=== PATIENT | female | born 1935 | race Caucasian/White ===

== ENCOUNTER → 2016-11-28 | Outpatient (CLI) | payer MEDICARE, OTHER ==
[~2016-11-28] MED LIST: ASPIRIN81 M1 PO; AUGMENTIN 875 M1 TA1 PO; CALCIUM 600 PLU1 TAB PO; CEFTIN250 MG PO; CIPRO500 MG PO; FISH OIL 10001000 MG PO; GARLIC1 TAB PO; LEVAQUIN 500 M500 M1 IV; METOPROLOL25 MG PO; MULTIVITAMIN FO1 CAP PO; PROSOM2 MG PO; RESTORIL30 MG PO; RESTORIL7.5 MG PO; RITE AID MAGNE500 MG PO; ROCEPHIN1 GM IV; SLIPPERY ELM PO; SUPER B COMPLEX1 CAP PO; SYNTHROID,LEV125 MCG PO; VITAMIN C500 MG PO; [UNRECOGNIZED DRUG - OTHER]; [UNRECOGNIZED DRUG - OTHER]; [UNRECOGNIZED DRUG - OTHER] PO; [UNRECOGNIZED DRUG - OTHER] PO
--- NOTE | ~2016-11-28 | HM ---
[place], [place] HOLTER MONITOR REPORT NAME: [id number] UNIT #: [id number] ROOM: DOCTOR: CLAUDINE BAZAN MD BIRTHDATE: [birth year] DOS: 11/29/2016 REFERRED BY: Lulu Mays DO. The recording was begun on 11/28/2016, the recording was completed on 11/29/2016, analyzed on 11/29/2016 and interpreted on 11/29/2016. INDICATIONS: Paroxysmal atrial fibrillation. FINDINGS: The basic rhythm is normal sinus. Average heart rate is 83 and minimum heart rate is 56. The patient had occasional premature ventricular contractions with 1 couplet during the 24-hour period. The patient had frequent PACs. She did have several long runs of supraventricular tachycardia with rates up to 176 beats per minute. These appeared to be from a different focus from her sinus node and may represent AV joy or other reentrant tachycardias within the atrium. Episodes lasted as long as 2 hours with the longest episode beginning at about 3:15 in the afternoon. No prolonged pauses were noted. The patient did note heart flutters, heart pounding and fast heartbeats. The episode of heart pounding was associated with supraventricular tachycardia. The other symptoms were associated with normal sinus. IMPRESSION: Episodes of atrial tachycardia, possibly representing a reentrant tachycardia, lasting up to a few hours. The patient had symptoms of "pounding" during her tachycardias. CLAUDINE BAZAN MD CM:HOLTER:HOLTER MONITOR REPORT [id number] CLAUDINE BAZAN MD
== END | disposition home or self-care (01) ==
LOC: CARD 12:32
DX: I48.0 Paroxysmal atrial fibrillation (principal)

== ENCOUNTER 2017-02-27 10:43 | Emergency (ER) | payer MEDICARE, OTHER ==
[~2017-02-27] VITALS: Ht 160 cm; Wt 62.6 kg
[2017-02-27 11:25] LABS: BASO # 0.1 10*3/uL (0.0-0.1); BASO % 1.2 % (0.0-1.0); EOS # 0.4 10*3/uL (0.0-0.4); EOS % 5.9 % (1.0-4.0); HEMATOCRIT 38.8 % (37.0-47.0); HEMOGLOBIN 12.8 g/dl (12.0-16.0); LYMPH # 2.1 10*3/uL (1.3-4.4); LYMPH % 30.5 % (27.0-41.0); MEAN CELL VOLUME 89.4 fl (81.0-99.0); MEAN CORPUSCULAR HGB 29.5 pg (27.0-31.0); MEAN PLATELET VOLUME 9.9 fl (9.6-12.3); MONO # 0.6 10*3/uL (0.1-1.0); NEUT # 3.6 10*3/uL (2.3-7.9); NEUT % 53.1 % (47.0-73.0); PLATELET COUNT AUTOMATED 237 10*3/uL (130-400); RED BLOOD COUNT 4.34 10*6/uL (4.10-5.10); RED CELL DISTRI WIDTH 13.3 % (0-14.5); WHITE BLOOD COUNT 6.8 10*3/uL (4.8-10.8)
[2017-02-27 11:41] LABS: ALBUMIN 3.3 gm/dl (3.1-4.5); ALKALINE PHOSPHATASE 73 U/L (45-117); BUN 13 mg/dl (7-24); SGOT/AST 38 IU/L (3-35); SGPT/ALT 31 U/L (12-78); TOTAL PROTEIN 6.8 gm/dL (6.4-8.2)
[2017-02-27 11:48] LABS: CHLORIDE 105 mmol/L (98-107); MAGNESIUM 2.1 mg/dL (1.5-2.1); POTASSIUM 4.1 mmol/L (3.5-5.1); SODIUM 139 mmol/L (136-145)
[2017-02-27 11:55] LABS: CKMB 4.5 ng/ml (0.5-3.6)
[2017-02-27 12:01] LABS: THYROID STIM HORMONE (HS) 2.11 uIU/ml (0.358-4.75)
[2017-02-27 12:07] LABS: TROPONIN I < 0.015 ng/ml (<0.045)
== END 2017-02-27 14:02 | disposition short-term general hospital (02) ==
LOC: ED 10:43
PROVIDERS: Family Medicine
DX: S02.31XA Fracture of orbital floor, right side, initial encounter for closed fracture (principal); I10 Essential (primary) hypertension; E03.9 Hypothyroidism, unspecified; Z88.2 Allergy status to sulfonamides; Z79.899 Other long term (current) drug therapy; Z79.82 Long term (current) use of aspirin; W10.9XXA Fall (on) (from) unspecified stairs and steps, initial encounter; Y93.89 Activity, other specified; Y92.89 Other specified places as the place of occurrence of the external cause; Y99.8 Other external cause status

== ENCOUNTER → 2017-09-18 | Outpatient (CLI) | payer MEDICARE, OTHER ==
[2017-09-18 14:35] LABS: BASO # 0.1 10*3/uL (0.0-0.1); BASO % 0.9 % (0.0-1.0); EOS # 0.3 10*3/uL (0.0-0.4); EOS % 3.1 % (1.0-4.0); HEMATOCRIT 40.6 % (37.0-47.0); HEMOGLOBIN 13.7 g/dl (12.0-16.0); LYMPH # 2.4 10*3/uL (1.3-4.4); LYMPH % 29.5 % (27.0-41.0); MEAN CELL VOLUME 88.3 fl (81.0-99.0); MEAN CORPUSCULAR HGB 29.8 pg (27.0-31.0); MEAN CORPUSCULAR HGB CONC 33.7 g/dl (33.0-37.0); MEAN PLATELET VOLUME 10.3 fl (9.6-12.3); MONO # 0.7 10*3/uL (0.1-1.0); MONO % 8.9 % (3.0-9.0); NEUT # 4.7 10*3/uL (2.3-7.9); NEUT % 57.5 % (47.0-73.0); PLATELET COUNT AUTOMATED 233 10*3/uL (130-400); RED CELL DISTRI WIDTH 13.4 % (0-14.5); WHITE BLOOD COUNT 8.2 10*3/uL (4.8-10.8)
[2017-09-18 15:02] LABS: ALBUMIN 3.7 gm/dl (3.1-4.5); BUN 12 mg/dl (7-24); CHLORIDE 102 mmol/L (98-107); CHOLESTEROL 155 mg/dL (<200); CREATININE 1.03 mg/dL (0.55-1.02); POTASSIUM 4.2 mmol/L (3.5-5.1); SGOT/AST 37 IU/L (3-35); SGPT/ALT 31 U/L (12-78); SODIUM 135 mmol/L (136-145); TOTAL PROTEIN 7.4 gm/dL (6.4-8.2); TRIGLYCERIDES 93 mg/dl (<150); VLDL CHOLESTEROL 19 mg/dL (6-40)
[2017-09-18 15:11] LABS: ALKALINE PHOSPHATASE 78 U/L (45-117); HDL CHOLESTEROL 66 mg/dl (40-60); LDL CHOLESTEROL 70 mg/dL (9-159)
== END | disposition home or self-care (01) ==
LOC: LAB 13:14
PROVIDERS: Internal Medicine
DX: I10 Essential (primary) hypertension (principal); E03.9 Hypothyroidism, unspecified

== ENCOUNTER → 2018-01-26 | Outpatient (CLI) | payer MEDICARE, OTHER ==
[2018-01-26 11:19] LABS: HEMATOCRIT 44.2 % (37.0-47.0); HEMOGLOBIN 14.4 g/dl (12.0-16.0); MEAN CELL VOLUME 91.3 fl (81.0-99.0); MEAN CORPUSCULAR HGB 29.8 pg (27.0-31.0); MEAN CORPUSCULAR HGB CONC 32.6 g/dl (33.0-37.0); RED BLOOD COUNT 4.84 10*6/uL (4.10-5.10); RED CELL DISTRI WIDTH 13.2 % (0-14.5); WHITE BLOOD COUNT 8.8 10*3/uL (4.8-10.8)
[2018-01-26 11:52] LABS: ALBUMIN 3.9 gm/dl (3.1-4.5); CREATININE 1.24 mg/dL (0.55-1.02); POTASSIUM 4.1 mmol/L (3.5-5.1); TOTAL PROTEIN 7.7 gm/dL (6.4-8.2)
[2018-01-26 12:01] LABS: THYROID STIM HORMONE (HS) 2.56 uIU/ml (0.358-4.75)
== END ==
LOC: LAB 11:01
PROVIDERS: Physician Assistant
DX: E03.9 Hypothyroidism, unspecified (principal); I10 Essential (primary) hypertension; F51.04 Psychophysiologic insomnia; E55.9 Vitamin D deficiency, unspecified

== ENCOUNTER → 2019-02-09 | Outpatient (CLI) | payer MEDICARE, OTHER ==
[~2019-02-09] MED LIST changes: +ENOXAPARIN40 MG/0.2 SC; +HYDROCODONE-AC1 EAC1 PO; +LOPRESSOR50 M1 PO; +MORPHINE SU2 MG/1 M2 IV
== END | disposition home or self-care (01) ==
LOC: RAD 13:55
DX: M16.11 Unilateral primary osteoarthritis, right hip (principal); M47.817 Spondylosis without myelopathy or radiculopathy, lumbosacral region; M51.37 Other intervertebral disc degeneration, lumbosacral region; M48.061 Spinal stenosis, lumbar region without neurogenic claudication; M25.78 Osteophyte, vertebrae

== ENCOUNTER 2019-09-06 11:59 | Emergency (ER) | payer MEDICARE, OTHER ==
[~2019-09-06] VITALS: Ht 160 cm; Wt 59.0 kg
[2019-09-06 12:42] LABS: BASO # 0.1 10*3/uL (0.0-0.1); BASO % 1.1 % (0.0-1.0); EOS # 0.3 10*3/uL (0.0-0.4); EOS % 3.4 % (1.0-4.0); HEMATOCRIT 43.9 % (37.0-47.0); HEMOGLOBIN 14.1 g/dl (12.0-16.0); LYMPH % 24.3 % (27.0-41.0); MEAN CELL VOLUME 92.8 fl (81.0-99.0); MEAN CORPUSCULAR HGB 29.8 pg (27.0-31.0); MEAN CORPUSCULAR HGB CONC 32.1 g/dl (33.0-37.0); MEAN PLATELET VOLUME 10.3 fl (9.6-12.3); MONO # 0.7 10*3/uL (0.1-1.0); MONO % 8.9 % (3.0-9.0); NEUT # 5.1 10*3/uL (2.3-7.9); NEUT % 61.9 % (47.0-73.0); PLATELET COUNT AUTOMATED 267 10*3/uL (130-400); RED BLOOD COUNT 4.73 10*6/uL (4.10-5.10); WHITE BLOOD COUNT 8.2 10*3/uL (4.8-10.8)
[2019-09-06 12:59] LABS: ALBUMIN 3.5 gm/dl (3.1-4.5); ALKALINE PHOSPHATASE 84 U/L (45-117); BUN 16 mg/dl (7-24); CHLORIDE 104 mmol/L (98-107); CREATININE 1.04 mg/dL (0.55-1.02); POTASSIUM 4.2 mmol/L (3.5-5.1); SGOT/AST 23 IU/L (3-35); SGPT/ALT 22 U/L (12-78); SODIUM 139 mmol/L (136-145); TOTAL PROTEIN 7.3 gm/dL (6.4-8.2)
[2019-09-06 13:06] LABS: TROPONIN I < 0.015 ng/ml (<0.045)
== END 2019-09-06 13:30 | disposition home or self-care (01) ==
LOC: ED 11:59
PROVIDERS: Emergency Medicine
DX: J06.9 Acute upper respiratory infection, unspecified (principal); E03.9 Hypothyroidism, unspecified; I12.9 Hypertensive chronic kidney disease with stage 1 through stage 4 chronic kidney disease, or unspecified chronic kidney disease; N18.3 Chronic kidney disease, stage 3 (moderate); M19.90 Unspecified osteoarthritis, unspecified site; Z88.2 Allergy status to sulfonamides; Z79.899 Other long term (current) drug therapy

== ENCOUNTER → 2020-08-17 | Outpatient (CLI) | payer MEDICARE, OTHER | END | disposition home or self-care (01) | LOC: CARD 08-16 11:00 | PROVIDERS: ATTEND Physician Assistant | DX: I48.0 Paroxysmal atrial fibrillation (principal); I10 Essential (primary) hypertension; M54.5 Low back pain; I49.9 Cardiac arrhythmia, unspecified ==

== ENCOUNTER 2021-12-12 07:31 | Inpatient (IN) | payer MEDICARE, OTHER ==
[~2021-12-12] VITALS: Ht 157.5 cm; Wt 64.9 kg
[2021-12-12 07:38] VITALS: BP 128/73
[2021-12-12] MEDS ORDERED: WARFARIN SODIUM4 MG PO (07:49)
[2021-12-12 08:25] LABS: BASO % 0.3 % (0.0-1.0); EOS # 0.1 10*3/uL (0.0-0.4); EOS % 0.5 % (1.0-4.0); HEMATOCRIT 44.2 % (37.0-47.0); LYMPH % 7.1 % (27.0-41.0); MEAN CELL VOLUME 87.2 fl (81.0-99.0); MEAN CORPUSCULAR HGB 29.4 pg (27.0-31.0); MEAN CORPUSCULAR HGB CONC 33.7 g/dl (33.0-37.0); MEAN PLATELET VOLUME 9.6 fl (9.6-12.3); MONO # 1.2 10*3/uL (0.1-1.0); MONO % 8.2 % (3.0-9.0); NEUT # 12.3 10*3/uL (2.3-7.9); NEUT % 83.6 % (47.0-73.0); PLATELET COUNT AUTOMATED 244 10*3/uL (130-400); RED BLOOD COUNT 5.07 10*6/uL (4.10-5.10); RED CELL DISTRI WIDTH 12.6 % (0-14.5); WHITE BLOOD COUNT 14.7 10*3/uL (4.8-10.8)
[2021-12-12 08:41] LABS: ALKALINE PHOSPHATASE 74 U/L (45-117); BUN 11 mg/dl (7-24); CHLORIDE 101 mmol/L (98-107); POTASSIUM 3.7 mmol/L (3.5-5.1); SGOT/AST 27 IU/L (3-35); SGPT/ALT 23 U/L (12-78); SODIUM 133 mmol/L (136-145); TOTAL PROTEIN 7.1 gm/dL (6.4-8.2)
[2021-12-12 08:42] LABS: INTERNATIONAL NORM RATIO 7.5 (2.0-3.5)
[2021-12-12 09:55] LABS: BILIRUBIN Negative (Negative); BLOOD 2+ (Negative); CLARITY Clear (Clear); COLOR Yellow (Yellow); GLUCOSE Negative (Negative); KETONE Trace (Negative); LEUKO ESTERASE 1+ (Negative); NITRITE Negative (Negative); SPECIFIC GRAVITY 1.015 (1.001-1.030); UROBILINOGEN 0.2 E.U./dl (0.0-1.0)
[2021-12-12 10:10] LABS: BACTERIA 4+; EPITHELIAL CELLS 21-30; RBC 21-30 rbc/hpf (0-2)
[2021-12-12 13:28] VITALS: BP 148/94
[2021-12-12] MEDS ORDERED: MECLIZINE HCL25 M2 PO (13:42)
[2021-12-12 15:58] VITALS: BP 138/84
[2021-12-12 20:00] VITALS: BP 143/79
[2021-12-13] VITALS: BP 107/58
[2021-12-13 05:38] LABS: BUN 10 mg/dl (7-24); CHLORIDE 102 mmol/L (98-107); CHOLESTEROL 96 mg/dL (<200); POTASSIUM 4.1 mmol/L (3.5-5.1); SGOT/AST 19 IU/L (3-35); SGPT/ALT 24 U/L (12-78); SODIUM 132 mmol/L (136-145); TRIGLYCERIDES 47 mg/dl (<150)
[2021-12-13 05:39] LABS: ALKALINE PHOSPHATASE 62 U/L (45-117)
[2021-12-13 05:45] LABS: FREE T4 1.33 ng/dl (0.76-1.46)
[2021-12-13 05:47] LABS: LDL CHOLESTEROL 28 mg/dL (9-159)
[2021-12-13 06:04] LABS: HEMATOCRIT 37.2 % (37.0-47.0); MEAN CELL VOLUME 87.1 fl (81.0-99.0); MEAN CORPUSCULAR HGB 29.3 pg (27.0-31.0); MEAN CORPUSCULAR HGB CONC 33.6 g/dl (33.0-37.0); MEAN PLATELET VOLUME 10.4 fl (9.6-12.3); PLATELET COUNT AUTOMATED 235 10*3/uL (130-400); RED BLOOD COUNT 4.27 10*6/uL (4.10-5.10); RED CELL DISTRI WIDTH 12.7 % (0-14.5); WHITE BLOOD COUNT 17.1 10*3/uL (4.8-10.8)
[2021-12-13 06:05] LABS: MANUAL DIFF REFLEX YES
[2021-12-13 06:27] LABS: INTERNATIONAL NORM RATIO 5.9 (2.0-3.5)
[2021-12-13 06:55] LABS: TOTAL CELLS COUNTED 100 #CELLS
[2021-12-13 06:56] LABS: BURR CELLS FEW; OVALOCYTES FEW; PLATELET SUFFICIENCY NORMAL (NORMAL); SCHISTOCYTES FEW
[2021-12-13 08:00] VITALS: BP 113/74
[2021-12-13 12:00] VITALS: BP 124/55
[2021-12-13 16:00] VITALS: BP 102/50
[2021-12-13 20:00] VITALS: BP 93/60
[2021-12-14] VITALS: BP 103/74
[2021-12-14 04:59] LABS: ALKALINE PHOSPHATASE 67 U/L (45-117); BUN 11 mg/dl (7-24); CHLORIDE 105 mmol/L (98-107); CREATININE 0.88 mg/dL (0.55-1.02); POTASSIUM 3.4 mmol/L (3.5-5.1); SGOT/AST 18 IU/L (3-35); SGPT/ALT 22 U/L (12-78); SODIUM 134 mmol/L (136-145); TOTAL PROTEIN 5.8 gm/dL (6.4-8.2)
[2021-12-14 06:04] LABS: BASO # 0.1 10*3/uL (0.0-0.1); BASO % 0.5 % (0.0-1.0); EOS # 0.3 10*3/uL (0.0-0.4); EOS % 2.3 % (1.0-4.0); HEMATOCRIT 37.6 % (37.0-47.0); LYMPH # 1.7 10*3/uL (1.3-4.4); LYMPH % 15.1 % (27.0-41.0); MEAN CELL VOLUME 89.7 fl (81.0-99.0); MEAN CORPUSCULAR HGB 29.4 pg (27.0-31.0); MEAN CORPUSCULAR HGB CONC 32.7 g/dl (33.0-37.0); MEAN PLATELET VOLUME 10.3 fl (9.6-12.3); MONO % 9.2 % (3.0-9.0); NEUT % 72.4 % (47.0-73.0); PLATELET COUNT AUTOMATED 225 10*3/uL (130-400); RED BLOOD COUNT 4.19 10*6/uL (4.10-5.10); RED CELL DISTRI WIDTH 12.6 % (0-14.5); WHITE BLOOD COUNT 11.1 10*3/uL (4.8-10.8)
[2021-12-14 06:39] LABS: INTERNATIONAL NORM RATIO 4.6 (2.0-3.5)
[2021-12-14 08:00] VITALS: BP 111/58
[2021-12-14] MEDS ORDERED: AUGMENTIN 875-875 MG PO (11:23)
[2021-12-14 12:00] VITALS: BP 121/70
== END 2021-12-14 13:35 | DRG 872 ==
LOC: ED 07:31 → 4E 11:47 → EDHOLD 11:47 → 4E 12:02
PROVIDERS: Emergency Medicine; Internal Medicine; ADMIT Internal Medicine; ATTEND Internal Medicine
DX: A41.9 Sepsis, unspecified organism (principal); E87.1 Hypo-osmolality and hyponatremia; K57.32 Diverticulitis of large intestine without perforation or abscess without bleeding; I10 Essential (primary) hypertension; E80.6 Other disorders of bilirubin metabolism; R73.9 Hyperglycemia, unspecified; R31.9 Hematuria, unspecified; K52.9 Noninfective gastroenteritis and colitis, unspecified; I48.91 Unspecified atrial fibrillation; Z86.718 Personal history of other venous thrombosis and embolism; Z83.3 Family history of diabetes mellitus; Z82.49 Family history of ischemic heart disease and other diseases of the circulatory system; Z88.2 Allergy status to sulfonamides; Z79.899 Other long term (current) drug therapy; Z79.01 Long term (current) use of anticoagulants

== ENCOUNTER 2022-06-21 19:44 | Inpatient (IN) | payer MEDICARE, OTHER ==
[~2022-06-21] VITALS: Ht 160 cm; Wt 63.5 kg
[~2022-06-21 19:44] MED LIST changes: +AUGMENTIN 875-875 MG PO; +MECLIZINE HCL25 M2 PO; +WARFARIN SODIUM4 MG PO
[2022-06-21 19:52] VITALS: BP 144/89
[2022-06-21] MEDS ORDERED: Coumadin3 MG PO (21:29)
[2022-06-21 23:33] VITALS: BP 140/76
[2022-06-22 04:00] VITALS: BP 136/73
[2022-06-22 06:02] LABS: ALKALINE PHOSPHATASE 70 U/L (46-116); BUN 15 mg/dl (9-23); CHLORIDE 104 mmol/L (98-107); CREATININE 0.82 mg/dL (0.55-1.02); POTASSIUM 3.8 mmol/L (3.4-5.1); SGPT/ALT 17 U/L (10-49); SODIUM 139 mmol/L (136-145); TOTAL PROTEIN 7.1 gm/dL (6.0-8.0)
[2022-06-22 06:31] LABS: BASO # 0.1 10*3/uL (0.0-0.1); BASO % 0.8 % (0.0-1.0); EOS # 0.3 10*3/uL (0.0-0.4); EOS % 2.6 % (1.0-4.0); HEMATOCRIT 44.8 % (37.0-47.0); LYMPH % 28.5 % (27.0-41.0); MEAN CELL VOLUME 89.8 fl (81.0-99.0); MEAN CORPUSCULAR HGB 29.3 pg (27.0-31.0); MEAN CORPUSCULAR HGB CONC 32.6 g/dl (33.0-37.0); MEAN PLATELET VOLUME 10.8 fl (9.6-12.3); MONO # 1.2 10*3/uL (0.1-1.0); NEUT % 56.6 % (47.0-73.0); PLATELET COUNT AUTOMATED 254 10*3/uL (130-400); RED BLOOD COUNT 4.99 10*6/uL (4.10-5.10); RED CELL DISTRI WIDTH 12.9 % (0-14.5); WHITE BLOOD COUNT 10.5 10*3/uL (4.8-10.8)
[2022-06-22 08:00] VITALS: BP 152/95
[2022-06-22 10:57] LABS: INTERNATIONAL NORM RATIO 4.5 (2.0-3.5)
[2022-06-22 12:00] VITALS: BP 142/65
[2022-06-22 16:00] VITALS: BP 160/82
[2022-06-22 20:00] VITALS: BP 160/102
[2022-06-23] VITALS: BP 152/85
[2022-06-23 08:00] VITALS: BP 115/74
[2022-06-23 08:17] LABS: BASO # 0.1 10*3/uL (0.0-0.1); BASO % 0.7 % (0.0-1.0); EOS # 0.4 10*3/uL (0.0-0.4); EOS % 4.9 % (1.0-4.0); HEMATOCRIT 39.6 % (37.0-47.0); LYMPH # 1.7 10*3/uL (1.3-4.4); LYMPH % 22.9 % (27.0-41.0); MEAN CELL VOLUME 87.6 fl (81.0-99.0); MEAN CORPUSCULAR HGB CONC 33.1 g/dl (33.0-37.0); MEAN PLATELET VOLUME 10.6 fl (9.6-12.3); MONO # 0.8 10*3/uL (0.1-1.0); MONO % 10.8 % (3.0-9.0); NEUT # 4.4 10*3/uL (2.3-7.9); NEUT % 60.3 % (47.0-73.0); PLATELET COUNT AUTOMATED 236 10*3/uL (130-400); RED BLOOD COUNT 4.52 10*6/uL (4.10-5.10); RED CELL DISTRI WIDTH 13.1 % (0-14.5); WHITE BLOOD COUNT 7.2 10*3/uL (4.8-10.8)
[2022-06-23 08:27] LABS: INTERNATIONAL NORM RATIO 2.9 (2.0-3.5)
[2022-06-23 08:31] LABS: BUN 13 mg/dl (9-23); CHLORIDE 102 mmol/L (98-107); POTASSIUM 4.5 mmol/L (3.4-5.1); SODIUM 137 mmol/L (136-145)
[2022-06-23 12:00] VITALS: BP 104/51
[2022-06-23 16:00] VITALS: BP 106/69
[2022-06-23 20:00] VITALS: BP 90/48
[2022-06-24] VITALS: BP 107/69
[2022-06-24 06:44] LABS: BASO # 0.1 10*3/uL (0.0-0.1); BASO % 0.7 % (0.0-1.0); EOS # 0.4 10*3/uL (0.0-0.4); EOS % 4.2 % (1.0-4.0); HEMATOCRIT 40.5 % (37.0-47.0); LYMPH # 2.1 10*3/uL (1.3-4.4); LYMPH % 24.9 % (27.0-41.0); MEAN CELL VOLUME 88.8 fl (81.0-99.0); MEAN CORPUSCULAR HGB 29.2 pg (27.0-31.0); MEAN CORPUSCULAR HGB CONC 32.8 g/dl (33.0-37.0); MEAN PLATELET VOLUME 10.5 fl (9.6-12.3); MONO # 0.9 10*3/uL (0.1-1.0); MONO % 10.5 % (3.0-9.0); NEUT # 5.1 10*3/uL (2.3-7.9); NEUT % 59.5 % (47.0-73.0); PLATELET COUNT AUTOMATED 240 10*3/uL (130-400); RED BLOOD COUNT 4.56 10*6/uL (4.10-5.10); RED CELL DISTRI WIDTH 13.2 % (0-14.5); WHITE BLOOD COUNT 8.6 10*3/uL (4.8-10.8)
[2022-06-24 08:00] VITALS: BP 118/63
[2022-06-24 11:27] LABS: BUN 12 mg/dl (9-23); CHLORIDE 101 mmol/L (98-107); CREATININE 0.86 mg/dL (0.55-1.02); POTASSIUM 3.9 mmol/L (3.4-5.1); SODIUM 135 mmol/L (136-145)
[2022-06-24 12:00] VITALS: BP 110/68
[2022-06-24] MEDS ORDERED: XARE15TA PO (14:44)
[2022-06-24] MEDS ORDERED: HYDROCODONE-AC1 EAC1 PO (14:46)
== END 2022-06-24 17:25 | DRG 563 ==
LOC: ED 19:44 → 4E 21:14 → EDHOLD 21:14 → 4E 23:20
PROVIDERS: Internal Medicine; Student in an Organized Health Care Education/Training Program; ADMIT Family Medicine; ATTEND Family Medicine
DX: S52.502A Unspecified fracture of the lower end of left radius, initial encounter for closed fracture (principal); B37.89 Other sites of candidiasis; I48.91 Unspecified atrial fibrillation; N18.30 Chronic kidney disease, stage 3 unspecified; Z20.822 Contact with and (suspected) exposure to COVID-19; Z96.642 Presence of left artificial hip joint; Z96.651 Presence of right artificial knee joint; M18.12 Unilateral primary osteoarthritis of first carpometacarpal joint, left hand; I12.9 Hypertensive chronic kidney disease with stage 1 through stage 4 chronic kidney disease, or unspecified chronic kidney disease; Z66 Do not resuscitate; R79.1 Abnormal coagulation profile; E03.9 Hypothyroidism, unspecified; W18.39XA Other fall on same level, initial encounter; Y93.89 Activity, other specified; Y92.89 Other specified places as the place of occurrence of the external cause; Y99.8 Other external cause status; Z88.2 Allergy status to sulfonamides; Z98.41 Cataract extraction status, right eye; Z83.3 Family history of diabetes mellitus; Z82.49 Family history of ischemic heart disease and other diseases of the circulatory system

== ENCOUNTER → 2022-07-10 | Outpatient (CLI) | payer MEDICARE, OTHER ==
[~2022-07-10] MED LIST changes: +Coumadin3 MG PO; +XARE15TA PO
== END | disposition home or self-care (01) ==
LOC: RAD 04:27
PROVIDERS: ATTEND Orthopaedic Surgery
DX: S52.502D Unspecified fracture of the lower end of left radius, subsequent encounter for closed fracture with routine healing (principal); X58.XXXD Exposure to other specified factors, subsequent encounter

== ENCOUNTER 2022-08-19 09:08 | Emergency (ER) | payer MEDICARE, OTHER ==
[~2022-08-19] VITALS: Wt 69.2 kg
[2022-08-19] MEDS ORDERED: PREDNISONE10 MG PO (09:24)
[2022-08-19] MEDS ORDERED: CLINDAMYCIN HC300 MG PO (09:24)
[2022-08-19] MEDS ORDERED: Kenalog 0.5% Oi15 GM T (09:24)
== END 2022-08-19 10:16 | disposition home or self-care (01) ==
LOC: ED 09:08
DX: R60.9 Edema, unspecified (principal); T36.8X5A Adverse effect of other systemic antibiotics, initial encounter; Z88.2 Allergy status to sulfonamides; Z96.651 Presence of right artificial knee joint; Z98.42 Cataract extraction status, left eye; Y92.89 Other specified places as the place of occurrence of the external cause

== ENCOUNTER → 2022-09-13 | Outpatient (CLI) | payer MEDICARE, OTHER ==
[~2022-09-13] MED LIST changes: +ASPIRIN ADULT L81 M2 PO; +CLINDAMYCIN HC300 MG PO; +Kenalog 0.5% Oi15 GM T; +PREDNISONE10 MG PO; +VITAMIN D350 MC2 PO
== END | disposition home or self-care (01) ==
LOC: ORTHO 00:42
PROVIDERS: ATTEND Orthopaedic Surgery
DX: M97.02XD Periprosthetic fracture around internal prosthetic left hip joint, subsequent encounter (principal)

== ENCOUNTER → 2022-09-19 | Outpatient (CLI) | payer MEDICARE, OTHER | END | disposition home or self-care (01) | LOC: RESCLI 00:25 | PROVIDERS: ATTEND Internal Medicine | DX: I48.91 Unspecified atrial fibrillation (principal); E03.9 Hypothyroidism, unspecified; I10 Essential (primary) hypertension; M16.11 Unilateral primary osteoarthritis, right hip; Z79.01 Long term (current) use of anticoagulants; Z79.899 Other long term (current) drug therapy; Z90.710 Acquired absence of both cervix and uterus; Z88.2 Allergy status to sulfonamides ==

== ENCOUNTER → 2022-10-14 | Outpatient (CLI) | payer MEDICARE, OTHER | END | disposition home or self-care (01) | LOC: ORTHO 00:36 | PROVIDERS: ATTEND Orthopaedic Surgery | DX: M97.02XD Periprosthetic fracture around internal prosthetic left hip joint, subsequent encounter (principal); X58.XXXD Exposure to other specified factors, subsequent encounter ==

== ENCOUNTER 2022-11-23 11:22 | Emergency (ER) | payer MEDICARE, OTHER ==
[~2022-11-23] VITALS: Ht 160 cm; Wt 73.0 kg
[2022-11-26] MEDS ORDERED: XARE15TA PO (10:16)
== END 2022-11-23 13:41 ==
LOC: ED 11:22
DX: M25.462 Effusion, left knee (principal); M19.90 Unspecified osteoarthritis, unspecified site; I10 Essential (primary) hypertension; I48.91 Unspecified atrial fibrillation; Z88.2 Allergy status to sulfonamides; Z96.651 Presence of right artificial knee joint; Z98.890 Other specified postprocedural states; Z90.710 Acquired absence of both cervix and uterus; Z98.41 Cataract extraction status, right eye

== ENCOUNTER → 2022-11-28 | Day surgery (SDC) | payer MEDICARE, OTHER ==
[~2022-11-28] VITALS: Ht 160 cm; Wt 61.7 kg
[2022-11-28 07:15] VITALS: BP 118/70
[2022-11-28 08:53] VITALS: BP 134/69
[2022-11-28 09:08] VITALS: BP 111/62
[2022-11-28 09:23] VITALS: BP 129/66
== END ==
LOC: SDC 11-25 12:30
PROVIDERS: ATTEND Orthopaedic Surgery
DX: G56.03 Carpal tunnel syndrome, bilateral upper limbs (principal); I10 Essential (primary) hypertension; G47.00 Insomnia, unspecified; Z86.718 Personal history of other venous thrombosis and embolism; Z90.710 Acquired absence of both cervix and uterus; Z90.89 Acquired absence of other organs; Z98.890 Other specified postprocedural states; Z79.899 Other long term (current) drug therapy

== ENCOUNTER → 2022-12-23 | Outpatient (CLI) | payer MEDICARE, OTHER | END | disposition home or self-care (01) | LOC: ORTHO 02:18 | PROVIDERS: ATTEND Orthopaedic Surgery | DX: M97.02XD Periprosthetic fracture around internal prosthetic left hip joint, subsequent encounter (principal) ==